=== PATIENT | male | born 1950 | race Caucasian/White ===

== ENCOUNTER 2018-04-20 15:39 | Emergency (ER) | payer OTHER, MEDICARE ==
[~2018-04-20] VITALS: Ht 170.1 cm; Wt 61.2 kg
[2018-04-20] VITALS (12 sets, daily range): BP systolic 104–147; BP diastolic 40–82
--- NOTE | ~2018-04-20 | EKG ---
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
[~2018-04-20 15:39] MED LIST: ALBUTEROL0.09 MG/A2 IH; AMITRIPTYLINE25 MG PO; AMLODIPINE BESYL5 MG PO; APAP/OXYCODONE1 TA2 PO; ASPIRIN81 M1 PO; ATIVAN2 MG/ML IV; AVELOX400 MG PO; CIPRO IV; CIPRO500 MG PO; CIPROFLOXACIN500 M4 PO; COMBIVENT RESPIM4 GM IH; COREG3.125 MG PO; DOCUSATE SOD100 MG PO; DULCOLAX10 MG R; DULCOLAX5 MG PO; DURAGESIC TD; FLAGYL I.V.500 MG IV; HYDRALAZINE HCL25 MG PO; HYDROCODONE BIT1 T11 PO; IMODIUM AD0.2 MG/1 M; LEVOTHYROXINE; LEVOTHYROXINE0.15 MG PO; LOMOTIL 0.025 M1 TA1 PO; LOPRESSOR25 MG PO; LOVENOX30 MG/0.3 SC; LOXAPINE50 MG PO; Lopressor25 MG PO; MACROBID100 M1 PO; MEDROL DOSEPAK4 MG PO; METOPROLOL SR50 MG PO; MOM30 M1 PO; MORPHINE4 MG IV; OXY IR; OYSTER SHELL C PO; PERCOCET 325 MG1 TA2 PO; PERCOCET 325 MG1 TA7 PO; Percocet 325 MG1 TAB PO; RESTORIL15 MG PO; SEPTRA DS 800 M1 TAB PO; SIMVASTATIN; SIMVASTATIN40 MG PO; SIMVASTATIN80 MG PO; SODIUM CHLORI1000 M1 IV; SYNTHROID,LEV175 MCG PO; Synthroid,Lev150 MCG PO; TYLENOL325 M2 PO; TYLENOL650 MG R; VENLAFAXINE150 MG PO; VENLAFAXINE225 MG PO; ZOFRAN2 MG/ML IV; ZYVOX600 MG PO; [UNRECOGNIZED DRUG - OTHER] PO
[2018-04-20] MEDS ORDERED: LEVOTHYROXINE125 MCG PO (15:49)
[2018-04-20] MEDS ORDERED: LYRICA150 M1 PO (15:49)
[2018-04-20 16:17] LABS: BASO # 0.1 10*3/uL (0.0-0.1); BASO % 0.4 % (0.0-1.0); EOS % 0.1 % (1.0-4.0); HEMATOCRIT 31.2 % (42.0-52.0); HEMOGLOBIN 10.1 g/dl (14.0-18.0); LYMPH # 0.8 10*3/uL (1.3-4.4); LYMPH % 4.7 % (27.0-41.0); MEAN CELL VOLUME 79.8 fl (80.0-94.0); MEAN CORPUSCULAR HGB 25.8 pg (27.0-31.0); MEAN CORPUSCULAR HGB CONC 32.4 g/dl (33.0-37.0); MEAN PLATELET VOLUME 9.5 fl (9.6-12.3); MONO # 1.1 10*3/uL (0.1-1.0); MONO % 6.6 % (3.0-9.0); NEUT # 15.2 10*3/uL (2.3-7.9); NEUT % 87.9 % (47.0-73.0); PLATELET COUNT AUTOMATED 368 10*3/uL (130-400); RED BLOOD COUNT 3.91 10*6/uL (4.50-5.90); RED CELL DISTRI WIDTH 15.6 % (0-14.5); WHITE BLOOD COUNT 17.3 10*3/uL (4.8-10.8)
[2018-04-20 16:21] LABS: BILIRUBIN NEGATIVE (NEGATIVE); BLOOD TRACE-LYSED (NEGATIVE); CLARITY CLEAR (CLEAR); COLOR YELLOW (YELLOW); GLUCOSE NEGATIVE (NEGATIVE); KETONE NEGATIVE (NEGATIVE); LEUKO ESTERASE NEGATIVE (NEGATIVE); NITRITE NEGATIVE (NEGATIVE)
[2018-04-20 16:27] LABS: BACTERIA 1+; EPITHELIAL CELLS 0-2; MUCOUS TRACE; WBC 0-2 wbc/hpf (0-5)
[2018-04-20 16:35] LABS: ALBUMIN 2.4 gm/dl (3.1-4.5); ALKALINE PHOSPHATASE 69 U/L (45-117); BUN 30 mg/dl (7-24); CHLORIDE 104 mmol/L (98-107); CREATININE 1.93 mg/dL (0.70-1.30); LIPASE 85 U/L (73-393); POTASSIUM 4.1 mmol/L (3.5-5.1); SGOT/AST 11 IU/L (3-35); SGPT/ALT 11 U/L (12-78); SODIUM 136 mmol/L (136-145); TOTAL PROTEIN 7.3 gm/dL (6.4-8.2)
[2018-04-20 16:36] LABS: TROPONIN I < 0.015 ng/ml (<0.045)
[2018-04-21] VITALS (8 sets, daily range): BP systolic 92–116; BP diastolic 39–51
[2018-05-10] MEDS ORDERED: OXYCODONE5 M1 PO (16:05)
== END 2018-04-21 08:30 | disposition short-term general hospital (02) ==
LOC: ED 15:39 → EDHOLD 19:55 → ED 19:55 → EDHOLD 20:09 → 5E 20:09 → ED 04-21 08:30
PROVIDERS: Physician Assistant
DX: A41.9 Sepsis, unspecified organism (principal); K61.1 Rectal abscess; K62.89 Other specified diseases of anus and rectum; F17.200 Nicotine dependence, unspecified, uncomplicated; F12.90 Cannabis use, unspecified, uncomplicated; Z93.3 Colostomy status; Z98.890 Other specified postprocedural states; Z79.899 Other long term (current) drug therapy; Z88.0 Allergy status to penicillin; Z85.048 Personal history of other malignant neoplasm of rectum, rectosigmoid junction, and anus

== ENCOUNTER → 2018-05-10 | Emergency (ER) | payer MEDICARE, OTHER ==
[~2018-05-10] VITALS: Wt 61.2 kg
[~2018-05-10] MED LIST changes: +LEVOTHYROXINE125 MCG PO; +LYRICA150 M1 PO; +OXYCODONE5 M1 PO
[2018-05-10 15:24] VITALS: BP 166/58
== END ==
LOC: ED 15:23
DX: K62.89 Other specified diseases of anus and rectum (principal); R07.9 Chest pain, unspecified; R50.9 Fever, unspecified; F17.200 Nicotine dependence, unspecified, uncomplicated; F12.10 Cannabis abuse, uncomplicated; Z76.0 Encounter for issue of repeat prescription; Z88.0 Allergy status to penicillin; Z79.899 Other long term (current) drug therapy; Z93.3 Colostomy status; Z93.2 Ileostomy status; Z90.49 Acquired absence of other specified parts of digestive tract; Z98.890 Other specified postprocedural states

== ENCOUNTER → 2018-07-03 | Outpatient (CLI) | payer MEDICARE, OTHER | END | disposition home or self-care (01) | LOC: WOUNDCARE 04:20 | DX: T81.89XD Other complications of procedures, not elsewhere classified, subsequent encounter (principal); F17.290 Nicotine dependence, other tobacco product, uncomplicated; Z93.3 Colostomy status; Y83.8 Other surgical procedures as the cause of abnormal reaction of the patient, or of later complication, without mention of misadventure at the time of the procedure ==

== ENCOUNTER 2018-07-10 17:12 | Emergency (ER) | payer OTHER ==
[~2018-07-10] VITALS: Ht 170.1 cm; Wt 61.2 kg
[2018-07-10 18:02] LABS: BASO # 0.1 10*3/uL (0.0-0.1); EOS # 0.3 10*3/uL (0.0-0.4); EOS % 3.5 % (1.0-4.0); HEMATOCRIT 40.4 % (42.0-52.0); HEMOGLOBIN 13.3 g/dl (14.0-18.0); LYMPH # 1.3 10*3/uL (1.3-4.4); LYMPH % 17.1 % (27.0-41.0); MEAN CELL VOLUME 82.8 fl (80.0-94.0); MEAN CORPUSCULAR HGB 27.3 pg (27.0-31.0); MEAN CORPUSCULAR HGB CONC 32.9 g/dl (33.0-37.0); MEAN PLATELET VOLUME 10.2 fl (9.6-12.3); MONO # 0.6 10*3/uL (0.1-1.0); MONO % 7.8 % (3.0-9.0); NEUT # 5.4 10*3/uL (2.3-7.9); NEUT % 70.5 % (47.0-73.0); PLATELET COUNT AUTOMATED 253 10*3/uL (130-400); RED BLOOD COUNT 4.88 10*6/uL (4.50-5.90); RED CELL DISTRI WIDTH 17.9 % (0-14.5); WHITE BLOOD COUNT 7.7 10*3/uL (4.8-10.8)
[2018-07-10 18:09] LABS: BILIRUBIN NEGATIVE (NEGATIVE); BLOOD NEGATIVE (NEGATIVE); CLARITY CLEAR (CLEAR); COLOR YELLOW (YELLOW); GLUCOSE NEGATIVE (NEGATIVE); KETONE NEGATIVE (NEGATIVE); LEUKO ESTERASE NEGATIVE (NEGATIVE); NITRITE NEGATIVE (NEGATIVE); PH 5.5 (5.0-9.0); SPECIFIC GRAVITY <= 1.005 (1.005-1.030); UROBILINOGEN 0.2 E.U./dl (0.2-1.0)
[2018-07-10 18:16] LABS: BACTERIA TRACE; RBC 0-2 rbc/hpf (0-2)
[2018-07-10 18:18] LABS: ALBUMIN 3.4 gm/dl (3.1-4.5); CREATININE 1.77 mg/dL (0.70-1.30); POTASSIUM 4.1 mmol/L (3.5-5.1); TOTAL PROTEIN 7.7 gm/dL (6.4-8.2)
[2018-07-10 22:35] VITALS: BP 137/82
== END 2018-07-10 23:04 | disposition home or self-care (01) ==
LOC: ED 17:12
PROVIDERS: Student in an Organized Health Care Education/Training Program
DX: R10.30 Lower abdominal pain, unspecified (principal); E03.9 Hypothyroidism, unspecified; E78.5 Hyperlipidemia, unspecified; J43.9 Emphysema, unspecified; I13.0 Hypertensive heart and chronic kidney disease with heart failure and stage 1 through stage 4 chronic kidney disease, or unspecified chronic kidney disease; N18.9 Chronic kidney disease, unspecified; I50.22 Chronic systolic (congestive) heart failure; F17.200 Nicotine dependence, unspecified, uncomplicated; Z85.038 Personal history of other malignant neoplasm of large intestine; Z98.890 Other specified postprocedural states; Z93.3 Colostomy status; Z88.0 Allergy status to penicillin; Z79.899 Other long term (current) drug therapy; Z93.2 Ileostomy status

== ENCOUNTER → 2020-12-29 | Outpatient (CLI) | payer OTHER | END | disposition home or self-care (01) | LOC: CT 13:00 | PROVIDERS: ATTEND Nurse Practitioner Family | DX: J43.9 Emphysema, unspecified (principal); I25.10 Atherosclerotic heart disease of native coronary artery without angina pectoris; Z72.0 Tobacco use ==